=== PATIENT | male | born 2000 | race American Indian/Alaskan Native ===

== ENCOUNTER 2018-09-22 01:15 | Emergency (ER) | payer BC ==
[2018-09-22 01:24] VITALS: BP 117/77
--- NOTE | 2018-09-22 01:53 | XRay Report ---
FINAL REPORT PROCEDURE: XR HAND 2V RT TECHNIQUE: RIGHT hand radiographs, AP, lateral, and oblique views. CPT 22229-BT HISTORY: R/O foreign body COMPARISON: No prior studies are available for comparison. FINDINGS: Fracture (s) and/or Dislocation(s): None . Alignment: Normal . Joint space(s): Normal . Soft tissues: Normal . Bone mineralization: Normal . Foreign bodies: None . IMPRESSION: Normal Examination .
[2018-09-22] MEDS ORDERED: XYLOCAINE 2% INFILTRATI ONE (04:20)
[2018-09-22] MEDS ORDERED: PERCOCET 5/325 PO STA (04:20)
[2018-09-22] MEDS ORDERED: NACL 0.9% IR ONE (04:35)
[2018-09-22] MEDS ORDERED: NACL 0.9% 500 ML IR ONE (05:00)
--- NOTE | 2018-09-22 06:26 | Emergency Department Report ---
ED Upper Extremity Inj HPI - General Chief Complaint: Laceration/Recheck/Suture Stated Complaint: LATERATION TO HAND Time Seen by Provider: 09/22/18 04:19 Source: patient Mode of arrival: Ambulatory Limitations: No Limitations - History of Present Illness Initial Comments: 18-year-old male presents to emergency department complaining of pain to the right hand after hitting a TV depending a little laceration, multiple lacerations and having some bleeding. 2. Reports no numbness or tingling. Pain worse with range of motion and palpation with grasping motion. MD Complaint: Injury to:: right -: Sudden Other Extremity Injury: Hand: Right Handedness: right Place: home Improves With: none Worsens With: none Context: laceration Associated Symptoms: denies other symptoms. denies: weakness, numbness, suspects foreign body - Related Data Previous Rx's Medication Instructions Recorded Last Taken Type Acetaminophen/Codeine [Tylenol #3] 1 tab PO Q6H PRN #15 tab 09/22/18 Unknown Rx Chlorhexidine Gluconate [Hibiclens] 10 ml TP BID #240 liquid 09/22/18 Unknown Rx cephALEXin [Keflex] 500 mg PO Q6HR #40 capsule 09/22/18 Unknown Rx Allergies Allergy/AdvReac Type Severity Reaction Status Date / Time No Known Allergies Allergy Unverified 09/22/18 01:18 ED Review of Systems ROS: Stated complaint: LATERATION TO HAND Other details as noted in HPI Constitutional: denies: chills, fever Eyes: denies: eye pain, eye discharge, vision change ENT: denies: ear pain, throat pain Respiratory: denies: cough, shortness of breath, wheezing Cardiovascular: denies: chest pain, palpitations Endocrine: no symptoms reported Gastrointestinal: denies: abdominal pain, nausea, diarrhea Genitourinary: denies: urgency, dysuria Musculoskeletal: denies: back pain, joint swelling, arthralgia Skin: change in color. denies: rash, lesions Neurological: denies: headache, weakness, paresthesias Psychiatric: denies: anxiety, depression Hematological/Lymphatic: denies: easy bleeding, easy bruising ED Past Medical Hx - Past Medical History Previous Medical History?: No - Surgical History Past Surgical History?: No - Social History Smoking Status: Current Every Day Smoker Substance Use Type: None - Medications Home Medications: Home Medications Medication Instructions Recorded Confirmed Last Taken Type Acetaminophen/Codeine [Tylenol #3] 1 tab PO Q6H PRN #15 tab 09/22/18 Unknown Rx Chlorhexidine Gluconate [Hibiclens] 10 ml TP BID #240 liquid 09/22/18 Unknown R x cephALEXin [Keflex] 500 mg PO Q6HR #40 capsule 09/22/18 Unknown Rx ED Physical Exam - General Limitations: No Limitations General appearance: alert, in no apparent distress - Head Head exam: Present: atraumatic, normocephalic - Eye Eye exam: Present: normal appearance, PERRL, EOMI Pupils: Present: normal accommodation - ENT ENT exam: Present: mucous membranes moist - Neck Neck exam: Present: normal inspection - Respiratory Respiratory exam: Present: normal lung sounds bilaterally. Absent: respiratory distress - Cardiovascular Cardiovascular Exam: Present: regular rate, normal rhythm. Absent: systolic murmur, diastolic murmur, rubs, gallop - GI/Abdominal GI/Abdominal exam: Present: soft, normal bowel sounds - Rectal Rectal exam: Present: deferred - Extremities Exam Extremities exam: Present: normal inspection, other (multiple jagged, irregular, macerated lacerations to the right hand with some areas of skin evulsion. Pulses are 2+. Capillary refills are brisk. Lacerations and avulsions to the dorsum aspect palmaris bearing. No hypo-thenar thenar pain or tenderness. No snuffbox tenderness) - Back Exam Back exam: Present: normal inspection - Neurological Exam Neurological exam: Present: alert, oriented X3 - Psychiatric Psychiatric exam: Present: normal affect, normal mood - Skin Skin exam: Present: warm, dry, intact, normal color. Absent: rash ED Course Vital Signs 09/22/18 01:18 Temperature 99.5 F Pulse Rate 98 H Respiratory 18 Rate Blood Pressure 117/77 O2 Sat by Pulse 98 Oximetry - Laceration /Wound Repair Right Hand Wound Location: upper extremity Wound Length (cm): 6 Wound's Depth, Shape: irregular Betadine Prep?: Yes Anesthesia: 1% Lidocaine Volume Anesthetic (ccs): 8 Wound Debrided: minimal Suture Size/Type: 4:0 Number of Sutures: 11 Critical care attestation.: If time is entered above; I have spent that time in minutes in the direct care of this critically ill patient, excluding procedure time. ED Disposition Clinical Impression: Hand laceration Disposition: DC-01 TO HOME OR SELFCARE Is pt being admited?: No Does the pt Need Aspirin: No Condition: Stable Instructions: Suture Care (ED), Laceration (ED) Referrals: LILY RESENDEZ MD [Primary Care Provider] - 3-5 Days
== END 2018-09-22 07:02 | disposition home or self-care (01) ==
LOC: ED 01:15
DX: S61.411A Laceration without foreign body of right hand, initial encounter (principal); F17.200 Nicotine dependence, unspecified, uncomplicated; W22.8XXA Striking against or struck by other objects, initial encounter; Y93.89 Activity, other specified; Y92.098 Other place in other non-institutional residence as the place of occurrence of the external cause; Y99.8 Other external cause status
CPT/HCPCS: 99283